=== PATIENT | female | born 1995 | race Caucasian/White ===

== ENCOUNTER → 2018-12-23 05:39 | Day surgery (SDC) | payer OTHER ==
[~2018-12-23 05:39] MED LIST: Atracurium* 10 MG/ML 10 ML VIAL ONE; Buffered Lidocaine 1% SYRIN* 1 ML/SYRINGE INTRADERM ONE; Bupivacaine 0.5% W/EPI SDV* 30 ML VIAL ONE; Dexamethasone TAB* 4 MG ONE; Dexamethasone TAB* 4 MG PO ONE; DiMENhydriNATE IV* 50 MG/ML VIAL IV PUSH PRN; EPHEDrine (Pressors)* 50 MG/ML VIAL ONE; Famotidine IV* 10 MG/ML 2 ML (20 mg) IV ONE; Famotidine IV* 10 MG/ML 2 ML (20 mg) ONE; Glycopyrrolate IV* 0.2 MG/ML 1 ML VIAL ONE; Ketorolac INJ* 30 MG/ML 1 ML VIAL ONE; Lactated Ringers 1000 ML Bag* 1,000 ML IV SCH; Lidocaine 2% PF * 5 ML VIAL ONE; Midazolam* 1 MG/ML 2 ML VIAL (2 MG) ONE; Morphine VIAL* 4 MG/ML VIAL (1 ml vial) IV PRN; Naloxone* 0.4 MG/ML 1 ML VIAL IV PRN; Neostigmine Methylsulfate* 1 MG/ML 10 ML VIAL (1 mg/ml) ONE; Ondansetron ODT TAB* 4 MG ONE; Ondansetron TAB* 4 MG PO ONE; PROCHLORPERAZINE INJ 5 MG/ML 2 ML VIAL IV PRN; PROCHLORPERAZINE INJ 5 MG/ML 2 ML VIAL ONE; Propofol* 10 MG/ML 20 ML BTL ONE; fentaNYL* 50 MCG/ML 2 ML VIAL (100 MCG VIAL) IV PRN; fentaNYL* 50 MCG/ML 2 ML VIAL (100 MCG VIAL) ONE; oxyCODONE/Acetamin 5/325 MG* TAB PO PRN
[2018-12-23 09:48] VITALS: BP 120/95
--- NOTE | 2018-12-24 10:47 | OP ---
DATE OF OPERATION: 12/23/18 - [facility] DATE OF : 89 SURGEON: Dr. Dom Gregg. ANESTHESIA: General anesthetic with endotracheal intubation. PRE-OP DIAGNOSIS: Patient desires permanent surgical sterilization. POST-OP DIAGNOSIS: Patient desires permanent surgical sterilization. OPERATIVE PROCEDURE: Bilateral laparoscopic tubal ligation with Filshie clips. ESTIMATED BLOOD LOSS: None. SPECIMEN: There were no specimens sent to pathology. IV FLUIDS: She received 1 L of IV crystalloid fluid. URINE OUTPUT: 600 cc of clear urine. FINDINGS: Laparoscopic findings revealed a normal uterus, adnexa, bowel and bladder. Normal pelvis. DESCRIPTION OF PROCEDURE: Patient was taken to the operating room, where she was identified. She was placed on the operating table, where a general anesthetic with endotracheal intubation was obtained without difficulty. She was then placed in the dorsal lithotomy position, prepped and draped in normal sterile fashion. Attention was then brought on to the patient's perineum, where the bladder was catheterized with a Qureshi catheter and drained of clear urine. A sponge stick was then inserted into the patient's vagina. Attention was then brought up to the patient's abdomen, where a 1 cm infraumbilical skin incision was made with a knife, carried through to the underlying layer of fascia. The fascia was then grasped with Mg clamps and brought up to the incision, and the fascia was then entered with a knife, and entry into the abdominal cavity was confirmed using Alexandra clamps. The Mg clamps and the fascia were then replaced with 0 Polysorb sutures. Through this incision, a 5 mm blunt trocar was introduced and the balloon in the trocar was insufflated with 10 cc of air to keep the trocar in place. Patient's abdomen was then insufflated with CO2 gas. She was then placed in Trendelenburg position. Laparoscopic findings revealed findings as noted above. A second trocar was introduced 4 cm above the symphysis pubis under direct visualization. Through this trocar , a Filshie clip applicator was introduced and the Filshie clips were applied bilaterally to the fallopian tubes with good blanching and blockage of the fallopian tube in its entire circumference bilaterally. At this point, all the instruments were then removed from the patient's abdomen. The Qureshi catheter was also removed as well as the vaginal sponge stick. Sponge, lap and instrument counts were correct x1. The umbilical fascia was closed using 0 Polysorb suture in a running fashion. In the skin, incisions were closed using 4-0 Monocryl subcuticular stitches. Patient tolerated the procedure well. Sponge, lap, needle counts were correct x2. She was then transferred to recovery room area in stable condition. [id number]/[facility] #: [id number] MTDD
== END | disposition home or self-care (01) ==
LOC: OR 05:39
PROVIDERS: ATTEND Obstetrics & Gynecology
DX: Z30.2 Encounter for sterilization (principal)
CPT/HCPCS: 81025; A9270-GY; C1776; J0780; J1885; J2250; J2704; J2710; J3010; J8540